=== PATIENT | female | born 1985 | race Caucasian/White ===

== ENCOUNTER 2018-01-17 21:14 | Emergency (ER) | payer MEDICAID, OTHER ==
[2018-01-17 21:24] VITALS: TEMP 98.6
[2018-01-17] MEDS ORDERED: NS 1,000 ML IV ONE (22:25)
[2018-01-17] MEDS ORDERED: ONDANSETRON 4 MG/2 ML VIAL IVP ONE (22:25)
--- NOTE | 2018-01-17 22:30 | EDPHY ---
H & P Stated Complaint: DIARRHEA, RASH, DIZZINESS, NAUSEA, WEAKNESS X 1 WEEK Time Seen by Provider: 01/17/18 22:10 HPI/ROS: HPI The patient presents with nausea, weakness, subjective fevers, diarrhea for the last 2 days. She saw her mental health providers today and she was taken off of Lexapro 40 mg and started on citalopram 20 mg, she has not taken the citalopram yet. She is on BuSpar 10 mg as well. Her providers thought she may be at risk for serotonin syndrome and advised her to come to the emergency department. She says her main symptom currently is nausea which she feels constantly and is moderate in severity. Despite this, she was able to drink 2 L of fluid. She is feeling increased stress as her mother had a total knee replacement today. She is sleeping less than usual. She also complains of a dry mouth some weakness and dizziness. REVIEW OF SYSTEMS Constitutional: No fever, no chills. Eyes: No discharge. ENT: No sore throat. Cardiovascular: No chest pain, no palpitations. Respiratory: No cough, no shortness of breath. Gastrointestinal: No abdominal pain, no vomiting. Genitourinary: No hematuria. Musculoskeletal: No back pain. Skin: No rashes. Neurological: No headache. PMHx: Mental health Soc Hx: Lives at home with her father PHYSICAL General Appearance: Alert, no distress Eyes: Pupils equal and round no pallor or injection ENT, Mouth: Mucous membranes moist Respiratory: There are no retractions, lungs are clear to auscultation Cardiovascular: Regular rate and rhythm Gastrointestinal: Abdomen is soft and non-tender, no masses, bowel sounds normal Neurological: A&O, moves all extremities, clonus present in lower extremities bilaterally with testing Skin: Warm and dry, no rashes Musculoskeletal: Neck is supple non tender Extremities: symmetrical, full range of motion Psychiatric: Patient is oriented X 3, there is no agitation Source: Patient Exam Limitations: No limitations - Personal History LMP (Females 10-55): Unknown Current Tetanus Diphtheria and Acellular Pertussis (TDAP): Yes - Medical/Surgical History Hx Asthma: Yes Hx Chronic Respiratory Disease: No Hx Diabetes: No Hx Cardiac Disease: No Hx Renal Disease: No Hx Cirrhosis: No Hx Alcoholism: No Hx HIV/AIDS: No Hx Splenectomy or Spleen Trauma: No Other PMH: DENIES - Social History Smoking Status: Never smoked Constitutional: Initial Vital Signs Temperature (C) 37.0 C 01/17/18 21:21 Heart Rate 89 01/17/18 21:21 Respiratory Rate 16 01/17/18 21:21 Blood Pressure 142/88 H 01/17/18 21:21 O2 Sat (%) 96 01/17/18 21:21 O2 Delivery Mode Room Air Allergies/Adverse Reactions: clarithromycin [From Biaxin] Allergy (Unknown, Verified 10/26/12 00:43) Home Medications: Medication Instructions Recorded Herbals/Supplements -Info Only 1 each PO AD 10/26/12 Multivitamins [Multivitamin (OTC)] 1 each PO DAILY 10/26/12 Norethindrone AC-Eth Estradiol 1 each PO DAILY 10/26/12 [] Director Operations Completed 10/26/12 10/26/12 Medical Decision Making - Diagnostics EKG Interpretation: EKG: Complete interpretation has been separately recorded in the [facility] archive. Summary impression: Normal sinus rhythm, QT is normal Differential Diagnosis: This is a 32-year-old female who presents with nausea, diarrhea, weakness, subjective fevers for the last 2 days, taking Lexapro and BuSpar, mental health worker concerned that she could have serotonin syndrome. On exam, she has normal vital signs, is generally well-appearing with a benign abdominal exam. She appears well hydrated. She does have induced clonus on exam, question if this is a side-effect of her Lexapro verses serotonin syndrome. However lack of fever and tremor, rule again serotonin syndrome. She could be experiencing a viral syndrome causing nausea and diarrhea. She also could be suffering from anxiety. Plan for basic labs, IV fluids, antiemetics. Labs are unremarkable, EKG was normal. Patient continued to feel relatively well. I discussed the case with poison Control, case [id number] they agree that the patient does not meet criteria for serotonin syndrome and clonus could be adverse effect of her Lexapro. I have discussed this with the patient and her father at the bedside. She is going to taper off her Lexapro and start citalopram. I have advised her that she needs to follow up with her his psychiatrist in the next few days and monitor her symptoms, I expect that she will get better now that she is stop the Lexapro. However I have discussed return precautions with her. - Data Points Laboratory Results: Laboratory Results 01/17/18 22:54 01/17/18 22:54 01/17/18 01/17/18 22:54 22:54 WBC 11.42 10^3/uL H 10^3/uL (3.80-9.50) RBC 4.48 10^6/uL 10^6/uL (4.18-5.33) Hgb 13.6 g/dL g/dL (12.6-16.3) Hct 40.0 % % (38.0-47.0) MCV 89.3 fL fL (81.5-99.8) MCH 30.4 pg pg (27.9-34.1) MCHC 34.0 g/dL g/dL (32.4-36.7) RDW 13.6 % % (11.5-15.2) Plt Count 343 10^3/uL 10^3/uL (150-400) MPV 9.9 fL fL (8.7-11.7) Neut % (Auto) 68.2 % % (39.3-74.2) Lymph % (Auto) 25.2 % % (15.0-45.0) Hamlin % (Auto) 4.8 % % (4.5-13.0) Eos % (Auto) 0.8 % % (0.6-7.6) Baso % (Auto) 0.6 % % (0.3-1.7) Nucleat RBC Rel Count 0.0 % % (0.0-0.2) Absolute Neuts (auto) 7.79 10^3/uL H 10^3/uL (1.70-6.50) Absolute Lymphs (auto) 2.88 10^3/uL 10^3/uL (1.00-3.00) Absolute Monos (auto) 0.55 10^3/uL 10^3/uL (0.30-0.80) Absolute Eos (auto) 0.09 10^3/uL 10^3/uL (0.03-0.40) Absolute Basos (auto) 0.07 10^3/uL 10^3/uL (0.02-0.10) Absolute Nucleated RBC 0.00 10^3/uL 10^3/uL (0-0.01) Immature Gran % 0.4 % % (0.0-1.1) Immature Gran # 0.04 10^3/uL 10^3/uL (0.00-0.10) Sodium 140 mEq/L mEq/L (135-145) Potassium 4.1 mEq/L mEq/L (3.5-5.2) Chloride 102 mEq/L mEq/L (97-110) Carbon Dioxide 23 mEq/l mEq/l (22-31) Anion Gap 15 mEq/L mEq/L (8-16) BUN 8 mg/dL mg/dL (7-23) Creatinine 1.0 mg/dL mg/dL (0.6-1.0) Estimated GFR > 60 Glucose 95 mg/dL mg/dL (70-100) Calcium 9.9 mg/dL mg/dL (8.5-10.4) Total Bilirubin 0.5 mg/dL mg/dL (0.1-1.4) AST 24 IU/L IU/L (14-46) ALT 44 IU/L IU/L (9-52) Alkaline Phosphatase 115 IU/L IU/L (38-126) Total Protein 8.1 g/dL g/dL (6.3-8.2) Albumin 4.5 g/dL g/dL (3.5-5.0) Medications Given: Discontinued Medications Sodium Chloride (Ns) 1,000 mls @ 0 mls/hr IV EDNOW ONE; Wide Open PRN Reason: Protocol Stop: 01/17/18 22:26 Last Admin: 01/17/18 22:36 Dose: 1,000 mls Ondansetron HCl (Zofran) 4 mg IVP EDNOW ONE Stop: 01/17/18 22:26 Last Admin: 01/17/18 22:36 Dose: 4 mg Departure - Departure Disposition: Home, Routine, Self-Care Clinical Impression: Nausea, Clonus Condition: Good Instructions: Serotonin Syndrome (ED) Additional Instructions: It does not appear that you meet the criteria for serotonin syndrome but could be having an adverse effect your Lexapro. You should follow up with your psychiatrist in the next few days. You need to return if you develop a high fever, continuous tremor, or are worse in any way. Referrals: BEST RODRÍGUEZ [Primary Care Provider] - As per Instructions
--- NOTE | 2018-01-17 22:38 | CPEKG ---
Heart Rate: 73 RR Interval: 822 P-R Interval: 172 QRSD Interval: 88 QT Interval: 400 QTC Interval: 441 P Almyra: 58 QRS Almyra: 43 T Wave Almyra: 6 EKG Severity - NORMAL ECG - EKG Impression: SINUS RHYTHM Electronically Signed By: Chris Gerard 18-Jan-2018 11:28:23
[2018-01-17 23:09] LABS: PLATELET COUNT 343 10^3/uL (150-400)
[2018-01-17 23:51] VITALS: PULSE 81; RESP 18
[2018-01-18 00:20] VITALS: BP 135/80; O2SAT 98
== END 2018-01-18 00:20 | disposition home or self-care (01) ==
DX: R11.0 Nausea (principal); R25.8 Other abnormal involuntary movements; J45.909 Unspecified asthma, uncomplicated; E86.9 Volume depletion, unspecified
CPT/HCPCS: 96374; J2405